=== PATIENT | male | born 1975 ===

== ENCOUNTER 2023-08-28 12:45 | Outpatient (CLI) | payer MEDICARE, MEDICAID, SELFPAY ==
--- NOTE | ~2023-08-28 | US_ITS ---
EXAMINATION: US renal BI DATE: 08/28/2023 13:16 INDICATION: Other specified abnormal findings of blood chemistry with elevated creatinine TECHNIQUE: Multiple ultrasound grayscale images of the kidneys were obtained. COMPARISON: None. FINDINGS: The right kidney measures 10.1 x 4.2 x 6.1 cm. The left kidney measures 10.4 x 4.7 x 4.3 cm. The kidn eys demonstrate normal echogenicity. There is no hydronephrosis in either kidney. No stones identifi ed. The bladder is normal. IMPRESSION: 1. Normal kidneys without hydronephrosis. Reviewed, dictated and finalized at location B.
== END 2023-08-28 12:46 ==
PROVIDERS: PCP Specialist; Visit Provider Internal Medicine Infectious Disease
DX: R79.89 Other specified abnormal findings of blood chemistry (principal)
CPT/HCPCS: 76775

== ENCOUNTER 2024-01-28 11:07 | Outpatient (CLI) | payer MEDICARE, MEDICAID, SELFPAY | END 2024-01-28 11:08 | disposition home or self-care (01) | LOC: ANHAUDIO 11:08 | PROVIDERS: PCP Specialist; Visit Provider Internal Medicine Infectious Disease | DX: H90.3 Sensorineural hearing loss, bilateral (principal); H93.91 Unspecified disorder of right ear; H93.8X2 Other specified disorders of left ear; H74.91 Unspecified disorder of right middle ear and mastoid | CPT/HCPCS: 92557; 92567 ==